=== PATIENT | female | born 1945 ===

== ENCOUNTER 2018-07-13 10:30 | Emergency (ER) | payer MEDICARE ==
[2018-07-13 10:36] VITALS: BMI 23.2
[2018-07-13 11:17] LABS: URINE BACTERIA FEW (<OCC); URINE BILIRUBIN NEGATIVE (NEGATIVE); URINE BLOOD 2+ (NEGATIVE); URINE COLOR Red (YELLOW); URINE GLUCOSE (UA) 1+ mg/dL (Normal); URINE LEUKOCYTE ESTERASE NEG Leu/uL (Negative); URINE PROTEIN 2+ mg/dL (NEGATIVE); URINE UROBILINOGEN NORMAL mg/dL (0.2-1.0)
[2018-07-13 11:19] LABS: URINE CLARITY Turbid (Clear)
--- NOTE | 2018-07-13 11:46 | C.PDOC ---
History Of Present Illness 72 y/o female comes in to ED stating she has been having gross hematuria since 2-3 days ago, worse today and darker, passing some clots. Patient was seen by Dr. Kinsey, urologist, yesterday and told patient to get CT scan this afternoon, but patient decided she needed to be seen now. Patient denies fever, chills, or abdominal pain. Time Seen by Provider: 07/13/18 10:52 Chief Complaint (Nursing): Female Genitourinary History Per: Patient History/Exam Limitations: no limitations Onset/Duration Of Symptoms: Days Current Symptoms Are (Timing): Still Present Past Medical History Reviewed: Historical Data, Nursing Documentation, Vital Signs Vital Signs: Last Vital Signs Temp 97.9 F 07/13/18 10:38 Pulse 69 07/13/18 10:38 Resp 18 07/13/18 10:38 BP 132/86 07/13/18 10:38 Pulse Ox 100 07/13/18 10:38 - Medical History PMH: HTN, Hypercholesterolemia, Hyperlipidemia, Kidney Stones Family History: States: No Known Family Hx - Social History Hx Alcohol Use: No Hx Substance Use: No - Immunization History Hx Tetanus Toxoid Vaccination: No Hx Influenza Vaccination: Yes Hx Pneumococcal Vaccination: No Review Of Systems Constitutional: Negative for: Fever, Chills Cardiovascular: Negative for: Chest Pain Respiratory: Negative for: Shortness of Breath Gastrointestinal: Negative for: Nausea, Vomiting Genitourinary: Positive for: Hematuria Musculoskeletal: Negative for: Back Pain Physical Exam - Physical Exam Appears: Non-toxic, No Acute Distress Skin: Warm, Dry Head: Atraumatic, Normacephalic Eye(s): bilateral: Normal Inspection Oral Mucosa: Moist Neck: Supple Cardiovascular: Rhythm Regular, No Murmur Respiratory: Normal Breath Sounds, No Rales, No Rhonchi, No Wheezing Gastrointestinal/Abdominal: Soft, Other (has an old vertical surgical scar on the suprapubic region) Back: No CVA Tenderness Extremity: Bilateral: Atraumatic, Normal Color And Temperature, Normal ROM Neurological/Psych: Oriented x3, Normal Speech, Normal Cognition ED Course And Treatment - Laboratory Results Result Diagrams: 07/13/18 11:49 07/13/18 11:49 Lab Results: Urine Color Red (YELLOW) 07/13/18 11:03 Urine Clarity Turbid (Clear) 07/13/18 11:03 Urine pH 6.0 (5.0-8.0) 07/13/18 11:03 Ur Specific [place] 1.015 (1.003-1.030) 07/13/18 11:03 Urine Protein 2+ mg/dL (NEGATIVE) H 07/13/18 11:03 Urine Glucose (UA) 1+ mg/dL (Normal) 07/13/18 11:03 Urine Ketones Negative mg/dL (NEGATIVE) 07/13/18 11:03 Urine Blood 2+ (NEGATIVE) H 07/13/18 11:03 Urine Nitrate Negative (NEGATIVE) 07/13/18 11:03 Urine Bilirubin Negative (NEGATIVE) 07/13/18 11:03 Urine Urobilinogen Normal mg/dL (0.2-1.0) 07/13/18 11:03 Ur Leukocyte Esterase Neg Shwetha/uL (Negative) 07/13/18 11:03 Urine RBC (Auto) 2333 /hpf (0-3) H 07/13/18 11:03 Urine Bacteria Few (<OCC) H 07/13/18 11:03 O2 Sat by Pulse Oximetry: 100 (RA) Pulse Ox Interpretation: Normal - CT Scan/US Abd/Pel CT Other Rad Studies (CT/US): Read By Radiologist, Radiology Report Reviewed CT/US Interpretation: FINDINGS: There is limited evaluation of the solid organs without the administration of IV contrast. LOWER THORAX: No visible c onsolidation, pleural effusion, or pneumothorax. LIVER: Unremarkable unenhanced appearance. GALLBLADDER AND BILE DUCTS: Cholelithiasis or sludge within the gallbladder. PANCREAS: Unremarkable unenhanced appearance. SPLEEN: Unremarkable unenhanced appearance. ADRENALS: Unremarkable unenhanced appearance. KIDNEYS AND URETERS: Indeterminate 2.9 x 2.3 cm hyperdense rounded masslike structure in the medial right mid to upper pole, appearing to reside within the collecting system. Punctate nonobstructing right upper pole calculus with associated hypodensity, possibly cyst. Mild hydronephrosis and proximal fullness of the right ureter. No left-sided hydronephrosis. No obstructing ca lculus bilaterally. BLADDER: The urinary bladder appears unremarkable. REPRODUCTIVE: Uterus is present. APPENDIX: The appendix appears within normal limits of caliber. No secondary signs of acute appendicitis. BOWEL: The stomach is nondistended. Lack of oral contrast limits evaluation for bowel pathology. The bowel loops appear within normal limits of caliber without evidence of intestinal obstruction. PERITONEUM: No significant free fluid. No definite free air. LYMPH NODES: No bulky lymphadenopathy identified. VASCULATURE: Dense atherosclerotic calcifications of the aorta and branches. No aortic aneurysm. BONES: Osseous demineralization. Degenerative changes. OTHER FINDINGS: None. IMPRESSION: Indeterminate 2.9 x 2.3 cm hyperdense rounded masslike structure in the medial right mid to upper pole, appearing to reside within the collecting system. Mild hydronephrosis and proximal fullness of the right ureter. Recommend renal ultrasound. Malignant neoplasm must be excluded. Suggest cystoscopy for further evaluation if indicated. Punctate nonobstructing right upper pole calculus with associated hypodensity, possibly cyst. Cholelithiasis or sludge within the gallbladder. Abd/Pel CT with contrast Other Rad Studies (CT/US): Read By Radiologist, Radiology Report Reviewed CT/US Interpretation: Accession No. : [id number]. Patient Name / ID : CHARLETTE COSTELLO / [id number]. Exam Date : 07/13/2018 14:54:06 ( Approved ). Study Comment : Sex / Age : F / 72Y. Creator : Daisy Herring. Dictator : Shanthi Cabrera MD. Diesel Engine I Pipe Fitter : Financial Reporting Manager : Shanthi Cabrera MD. Approver2 : Report Date : 07/13/2018 15:17:02. My Comment : . Date of service: 07/13/2018. PROCEDURE: CT Abdomen and Pelvis with contrast. HISTORY: right kidney mass, further eval. COMPARISON: Chest CT abdomen and pelvis performed 07/13/18. TECHNIQUE: Contrast dose: 100 mL Visipaque 320 IV. Radiation dose: Total exam DLP = 137 5.46 mGy-cm. This CT exam was performed using one or more of the following dose reduction techniques: Automated exposure control, adjustment of the mA and/or kV according to patient size, and/or use of iterative reconstruction technique. FINDINGS: LOWER THORAX: No visible consolidation, pleural effusion, or pneumothorax. Small hiatal hernia. LIVER: Unremarkable. GALLBLADDER AND BILE DUCTS: Probable small stones/sludge. PANCREAS: Unremarkable. SPLEEN: Unremarkable. ADRENALS: Unremarkable. KIDNEYS AND URETERS: 2.9 x 2.3 cm hyperdense rounded masslike structure in the medial right mid to upper pole, appearing to reside within the collecting system. This mass measures approxima tely 42 Hounsfield units on noncontrast study performed earlier the same day, 46 Hounsfield units on 30 sec delayed sequences, 105 Hounsfield units on 95 sec delays, and 80 Hounsfield units on 5 min delayed images. Appearance remains worrisome for malignant neoplasm such as transitional cell carcinoma. Right upper pole renal cyst with punctate associated calcification is also noted. There is prominence of the proximal right ureter. Too small to characterize 5 mm hypodensity within the left kidney. No left-sided hydronephrosis or obstructing calculus noted. VASCULATURE: No aortic aneurysm. Atherosclerotic calcifications present. BOWEL: Stomach is nondistended. Lack of oral contrast limits evaluation for bowel pathology. Bowel loops appear within normal limits of caliber without evidence of obstruction. APPENDIX: The appendix appears within normal limits of caliber. No secondary signs of acute appendicitis. PERITONEUM: No significant free fluid. No definite free air. LYMPH NODES: No bulky adenopathy identified. BLADDER: Mildly thick-walled under distended urinary bladder. REPRODUCTIVE: Uterus is present. BONES: Osseous demineralization. Degenerative changes. OTHER FINDINGS: None. IMPRESSION: Medial right mid to upper pole mass which demonstrates postcontrast enhancement as described above remains worrisome for malignant neoplasm such as transitional cell carcinoma. Correlate clinically and recommend further evaluation with cystoscopy/ureteroscopy if indicated. Mildly thick-walled under distended urinary bladder. Probable small gallbladder stones/sludge. Additional findings as above. Medical Decision Making Medical Decision Making: Plan: --Abd/Pel CT --Bloodwork --Urine Culture --UA Disposition Discussed With : Chidi Kinsey Doctor Will See Patient In The: Office Counseled Patient/Family Regarding: Studies Performed, Diagnosis, Need For Followup - Disposition Referrals: Chidi Kinsey MD [Staff Provider] - Disposition: HOME/ ROUTINE Disposition Time: 16:13 Condition: GOOD Additional Instructions: Please go directly to Dr Kinsey's office from the ER for further evaluation. Instructions: Blood in the Urine (Hematuria), Adult (DC) Forms: [facility] ([place]), General Discharge Instructions - Clinical Impression Clinical Impression: Renal mass, right, Hematuria - PA / DROP WIRE ALIGNER / Resident Statement MD/DO has reviewed & agrees with the documentation as recorded. - Scribe Statement The provider has reviewed the documentation as recorded by the Scribe Sabrina Lubin All medical record entries made by the Darrianibflor were at my direction and personally dictated by me. I have reviewed the chart and agree that the record accurately reflects my personal performance of the history, physical exam, medical decision making, and the department course for this patient. I have also personally directed, reviewed, and agree with the discharge instructions and disposition.
[2018-07-13 11:53] LABS: BASO # 0.1 K/uL (0.0-0.2); BASO % 1.2 % (0.0-2.0); EOS # 0.1 K/uL (0.0-0.7); EOS % 2.3 % (0.0-4.0); HEMOGLOBIN 12.7 g/dL (11.0-16.0); LYMPH # 1.9 K/uL (1.0-4.3); LYMPH % 37.9 % (20.0-40.0); MEAN CELL VOLUME 92.5 fL (81.0-99.0); MEAN CORPUSCULAR HGB CONC 33.5 g/dL (33.0-37.0); MONO # 0.3 K/uL (0.0-0.8); MONO % 6.7 % (0.0-10.0); NEUT # 2.6 K/uL (1.8-7.0); NEUT % 51.9 % (50.0-75.0); RBC 4.09 Mil/uL (3.80-5.20); RED CELL DISTRIBUTION WIDTH 12.4 % (11.5-14.5)
[2018-07-13 12:31] LABS: ALB/GLOB RATIO 1.4 (1.0-2.1); ALBUMIN 4.3 g/dL (3.5-5.0); ALT/SGPT 27 U/L (9-52); AST/SGOT 29 U/L (14-36); BLOOD UREA NITROGEN 20 mg/dL (7-17); GFR NON-AFRICAN AMERICAN > 60
--- NOTE | 2018-07-13 12:48 | CT ---
PROCEDURE: CT Abdomen and Pelvis without Oral or IV contrast. HISTORY: gross hematuria COMPARISON: CT abdomen and pelvis without contrast performed 12/27/14 TECHNIQUE: Contiguous axial images of the abdomen and pelvis. No oral or IV contrast administered. Coronal and Sagittal reformats generated and reviewed. Radiation dose: Total exam DLP = 461.25 MGy-cm. This CT exam was performed using one or more of the following dose reduction techniques: Automated exposure control, adjustment of the mA and/or kV according to patient size, and/or use of iterative reconstruction technique. FINDINGS: There is limited evaluation of the solid organs without the administration of IV contrast. LOWER THORAX: No visible consolidation, pleural effusion, or pneumothorax. LIVER: Unremarkable unenhanced appearance. GALLBLADDER AND BILE DUCTS: Cholelithiasis or sludge within the gallbladder. PANCREAS: Unremarkable unenhanced appearance. SPLEEN: Unremarkable unenhanced appearance. ADRENALS: Unremarkable unenhanced appearance. KIDNEYS AND URETERS: Indeterminate 2.9 x 2.3 cm hyperdense rounded masslike structure in the medial right mid to upper pole, appearing to reside within the collecting system. Punctate nonobstructing right upper pole calculus with associated hypodensity, possibly cyst. Mild hydronephrosis and proximal fullness of the right ureter. No left-sided hydronephrosis. No obstructing calculus bilaterally. BLADDER: The urinary bladder appears unremarkable. REPRODUCTIVE: Uterus is present. APPENDIX: The appendix appears within normal limits of caliber. No secondary signs of acute appendicitis. BOWEL: The stomach is nondistended. Lack of oral contrast limits evaluation for bowel pathology. The bowel loops appear within normal limits of caliber without evidence of intestinal obstruction. PERITONEUM: No significant free fluid. No definite free air. LYMPH NODES: No bulky lymphadenopathy identified. VASCULATURE: Dense atherosclerotic calcifications of the aorta and branches. No aortic aneurysm. BONES: Osseous demineralization. Degenerative changes. OTHER FINDINGS: None. IMPRESSION: Indeterminate 2.9 x 2.3 cm hyperdense rounded masslike structure in the medial right mid to upper pole, appearing to reside within the collecting system. Mild hydronephrosis and proximal fullness of the right ureter. Recommend renal ultrasound. Malignant neoplasm must be excluded. Suggest cystoscopy for further evaluation if indicated. Punctate nonobstructing right upper pole calculus with associated hypodensity, possibly cyst. Cholelithiasis or sludge within the gallbladder.
[2018-07-13] MEDS ORDERED: Iodixanol 320 MG/ML 100 ML BOTTLE IV ONE (14:18)
--- NOTE | 2018-07-13 16:04 | CT ---
Date of service: 07/13/2018 PROCEDURE: CT Abdomen and Pelvis with contrast HISTORY: right kidney mass, further eval COMPARISON: Chest CT abdomen and pelvis performed 07/13/18 TECHNIQUE: Contrast dose: 100 mL Visipaque 320 IV Radiation dose: Total exam DLP = 1375.46 mGy-cm. This CT exam was performed using one or more of the following dose reduction techniques: Automated exposure control, adjustment of the mA and/or kV according to patient size, and/or use of iterative reconstruction technique. FINDINGS: LOWER THORAX: No visible consolidation, pleural effusion, or pneumothorax. Small hiatal hernia. LIVER: Unremarkable. GALLBLADDER AND BILE DUCTS: Probable small stones/sludge. PANCREAS: Unremarkable. SPLEEN: Unremarkable. ADRENALS: Unremarkable. KIDNEYS AND URETERS: 2.9 x 2.3 cm hyperdense rounded masslike structure in the medial right mid to upper pole, appearing to reside within the collecting system. This mass measures approximately 42 Hounsfield units on noncontrast study performed earlier the same day, 46 Hounsfield units on 30 sec delayed sequences, 105 Hounsfield units on 95 sec delays, and 80 Hounsfield units on 5 min delayed images. Appearance remains worrisome for malignant neoplasm such as transitional cell carcinoma. Right upper pole renal cyst with punctate associated calcification is also noted. There is prominence of the proximal right ureter. Too small to characterize 5 mm hypodensity within the left kidney. No left-sided hydronephrosis or obstructing calculus noted. VASCULATURE: No aortic aneurysm. Atherosclerotic calcifications present. BOWEL: Stomach is nondistended. Lack of oral contrast limits evaluation for bowel pathology. Bowel loops appear within normal limits of caliber without evidence of obstruction. APPENDIX: The appendix appears within normal limits of caliber. No secondary signs of acute appendicitis. PERITONEUM: No significant free fluid. No definite free air. LYMPH NODES: No bulky adenopathy identified. BLADDER: Mildly thick-walled under distended urinary bladder. REPRODUCTIVE: Uterus is present. BONES: Osseous demineralization. Degenerative changes. OTHER FINDINGS: None. IMPRESSION: Medial right mid to upper pole mass which demonstrates postcontrast enhancement as described above remains worrisome for malignant neoplasm such as transitional cell carcinoma. Correlate clinically and recommend further evaluation with cystoscopy/ureteroscopy if indicated. Mildly thick-walled under distended urinary bladder. Probable small gallbladder stones/sludge. Additional findings as above.
[2018-07-13 16:19] VITALS: BP 154/83; PULSE 63; RESP 16; TEMP 97.9
[2018-07-13 16:21] VITALS: O2SAT 100
== END 2018-07-13 16:19 | disposition home or self-care (01) ==
LOC: C.ER 10:30
DX: N28.89 Other specified disorders of kidney and ureter (principal); R31.9 Hematuria, unspecified
CPT/HCPCS: 74176; 74177; 80053; 81001; 85025; 87086; 99285; Q9967

== ENCOUNTER 2018-07-14 00:38 | Emergency (ER) | payer MEDICARE ==
[2018-07-14 00:38] VITALS: BMI 23.2
--- NOTE | 2018-07-14 02:07 | C.PDOC ---
History Of Present Illness Patient presents with urinary retention. Last voided around 8pm. She was seen here yesterday , had blood work and ct scan which showed a possible renal cell carcinoma of the right kidney. No f/c/n/v Time Seen by Provider: 07/14/18 01:01 Chief Complaint (Nursing): Female Genitourinary History Per: Patient History/Exam Limitations: no limitations Onset/Duration Of Symptoms: Hrs Current Symptoms Are (Timing): Still Present Severity: Moderate Pain Scale Rating Of: 4 Reports Recently: Seen In ED, Treated By A Physician Recent travel outside of the [place]: No Additional History Per: Patient Past Medical History Reviewed: Historical Data, Nursing Documentation, Vital Signs Vital Signs: Last Vital Signs Temp 97.8 F 07/14/18 00:47 Pulse 66 07/14/18 00:47 Resp 20 07/14/18 00:47 BP 107/56 L 07/14/18 00:47 Pulse Ox 97 07/14/18 00:47 - Medical History PMH: HTN, Hypercholesterolemia, Hyperlipidemia, Kidney Stones Family History: States: No Known Family Hx - Social History Hx Alcohol Use: No Hx Substance Use: No - Immunization History Hx Tetanus Toxoid Vaccination: No Hx Influenza Vaccination: Yes Hx Pneumococcal Vaccination: No Review Of Systems Constitutional: Negative for: Fever, Chills Genitourinary: Positive for: Hematuria, Other (urinary retention) Musculoskeletal: Negative for: Back Pain Skin: Negative for: Rash Neurological: Negative for: Weakness Psych: Negative for: Anxiety Physical Exam - Physical Exam Appears: Non-toxic Skin: Warm, Dry Gastrointestinal/Abdominal: Soft, Tenderness, Distention, No Guarding, No Rebound, Other (distended bladder) Back: No CVA Tenderness Extremity: Normal ROM Extremity: Bilateral: Atraumatic Neurological/Psych: Oriented x3 Gait: Steady ED Course And Treatment O2 Sat by Pulse Oximetry: 97 Pulse Ox Interpretation: Normal Progress Note: bladder scan showed about 450-500 cc of urine Reevaluation Time: 05:37 Reassessment Condition: Improved Disposition Counseled Patient/Family Regarding: Studies Performed, Diagnosis, Need For Followup - Disposition Referrals: Chidi Kinsey MD [Staff Provider] - Disposition: HOME/ ROUTINE Disposition Time: 02:17 Condition: FAIR Additional Instructions: please return if symptoms recur Instructions: Blood in the Urine (Hematuria), Adult (DC), Bello Catheter, Female Forms: [facility] (Urdu) - Clinical Impression Clinical Impression: Hematuria, Acute urinary retention
[2018-07-14 03:39] VITALS: RESP 18
[2018-07-14 06:24] VITALS: BP 110/73; PULSE 58; TEMP 98.4; O2SAT 99
== END 2018-07-14 06:46 | disposition home or self-care (01) ==
LOC: C.ER 00:38
DX: R31.9 Hematuria, unspecified (principal); R33.9 Retention of urine, unspecified; E78.00 Pure hypercholesterolemia, unspecified; I10 Essential (primary) hypertension